=== PATIENT | female | born 1985 | race Caucasian/White ===

== ENCOUNTER 2017-12-27 19:39 | Emergency (ER) | payer OTHER ==
[2017-12-27 21:30] VITALS: BP 145/96
--- NOTE | 2017-12-27 21:44 | ED ---
Throat Pain/Nasal Congestion - HPI Summary HPI Summary: 32 yr old with sinus pressure for about 1.5 weeks, post nasal drip, and blow nose with yellow mucous. She has a sore throat as well. It is hard to breath out of her nose and hard to sleep at night. She has no other complaints. - History of Current Complaint Chief Complaint: UCRespiratory Time Seen by Provider: 12/27/17 21:33 - Allergies/Home Medications Allergies/Adverse Reactions: Allergies Allergy/AdvReac Type Severity Reaction Status Date / Time No Known Allergies Allergy Verified 12/27/17 21:25 Home Medications: Home Medications Blood Pressure Med 1 tab DAILY 12/27/17 [History Confirmed 12/27/17] PMH/Surg Hx/FS Hx/Imm Hx Endocrine/Hematology History: Reports: Hx Diabetes - type 2- diet controlled Cardiovascular History: Reports: Hx Hypertension - Surgical History Surgery Procedure, Year, and Place: gallbladder. 1 Infectious Disease History: No Infectious Disease History: Denies: Traveled Outside the [place] in Last 30 Days - Family History Known Family History: Positive: None - Social History Alcohol Use: Occasionally Substance Use Type: Reports: None Smoking Status (MU): Never Smoked Tobacco Review of Systems Positive: Chills Positive: Sore Throat, Nasal Discharge, Other - sinus pain All Other Systems Reviewed And Are Negative: Yes Physical Exam Triage Information Reviewed: Yes Vital Signs On Initial Exam: Initial Vitals Temp Pulse Resp BP Pulse Ox 98.4 F 87 16 145/96 99 12/27/17 21:26 12/27/17 21:26 12/27/17 21:26 12/27/17 21:26 12/27/17 21:26 Vital Signs Reviewed: Yes Appearance: Positive: Well-Appearing, No Pain Distress Skin: Positive: Warm, Skin Color Reflects Adequate Perfusion Head/Face: Positive: Normal Head/Face Inspection ENT: Positive: Pharynx normal, Nasal congestion, Nasal drainage, TMs normal Neck: Positive: Nontender Respiratory/Lung Sounds: Positive: Clear to Auscultation, Breath Sounds Present Cardiovascular: Positive: RRR. Negative: Murmur Abdomen Description: Positive: Nontender Musculoskeletal: Positive: Strength/ROM Intact Neurological: Positive: Sensory/Motor Intact, Alert, Oriented to Person Place, Time, CN Intact II-III Psychiatric: Positive: Normal - Damir Coma Scale Best Eye Response: 4 - Spontaneous Best Motor Response: 6 - Obeys Commands Best Verbal Response: 5 - Oriented Coma Scale Total: 15 Diagnostics - Vital Signs Vital Signs Temp Pulse Resp BP Pulse Ox 12/27/17 21:26 98.4 F 87 16 145/96 99 - Laboratory Lab Statement: Any lab studies that have been ordered have been reviewed, and results considered in the medical decision making process. EENT Course/Dx - Course Course Of Treatment: 32 yr old with sinusitis. Rx with augmentin and dc home - Diagnoses Provider Diagnoses: Sinusitis Discharge - Discharge Plan Condition: Good Disposition: HOME Prescriptions: Amoxicillin/Clavulanate TAB* [Augmentin TAB 875*] 875 mg PO BID #20 tab Patient Education Materials: Sinusitis (ED), Hypertension (ED) Referrals: ONESIMO Perdue [Primary Care Provider] -
[2017-12-27] MEDS: Amoxicillin/Clavulanate TAB* 875 MG PO ONE (21:54)
== END 2017-12-27 22:09 | disposition home or self-care (01) ==
LOC: UCCORT 19:39
DX: J32.9 Chronic sinusitis, unspecified (principal)
CPT/HCPCS: 99202; A9270-GY; G0463

== ENCOUNTER 2020-11-23 05:58 | Inpatient (IN) ==
[2020-11-23] MEDS ORDERED: Lactated Ringers 1000 ml BAG 1,000 ML IV SCH (06:00)
[2020-11-23] MEDS ORDERED: Buffered Lidocaine 1% SYRIN 1 ml INTRADERM ONE ×2 (06:00→06:25)
[2020-11-23] MEDS ORDERED: Dexamethasone IV 4 MG/ML VIAL 1 ml VIAL IV SLOW PU ONE (06:00)
[2020-11-23] MEDS ORDERED: Dexamethasone IV 4 MG/ML VIAL 1 ml VIAL ONE (06:24)
[2020-11-23] MEDS ORDERED: Heparin 5000 UNITS/ML 1 mL VIAL ONE (06:24)
[2020-11-23] MEDS ORDERED: ceFAZolin 2 GM PREMIX 2 GM/50 ML BAG ONE (06:25)
[2020-11-23] MEDS ORDERED: ceFAZolin 1 GM ADVAN 1 GM ADDV.VIAL IVPB ONE (06:25)
[2020-11-23] MEDS ORDERED: Methylene Blue 0.5 % 50 MG/10 ML AMP IV ONE (06:43)
[2020-11-23] MEDS ORDERED: Bupivacaine 0.25% SDV 30 ML ONE (06:43)
[2020-11-23] MEDS ORDERED: fentaNYL 250 mcg/5 ml 50 MCG/ML 5 ml VIAL (250 MCG) ONE (07:04)
[2020-11-23] MEDS ORDERED: Phenylephrine 40 mcg/mL 10mL (400mcg) SYRINGE ONE ×2 (07:04→08:04)
[2020-11-23] MEDS ORDERED: Lidocaine 2% PF 5 ML VIAL ONE ×2 (07:04→07:56)
[2020-11-23] MEDS ORDERED: Propofol 10 MG/ML 20 ML BTL ONE (07:04)
[2020-11-23] MEDS ORDERED: Midazolam 5 mg/5 ml VIAL 1 mg/ml 5 ml VIAL (5 mg) ONE (07:04)
[2020-11-23] MEDS ORDERED: Rocuronium 50 mg VIAL 10 mg/ml 5 ml VIAL (50 mg) ONE ×2 (07:05→09:16)
[2020-11-23] MEDS ORDERED: Ondansetron 4 mg VIAL 2 MG/ML 2 ml VIAL ONE (08:28)
[2020-11-23] MEDS ORDERED: Phenylephrine IV 10 MG/ML 1 ml VIAL ONE (08:35)
[2020-11-23] MEDS ORDERED: HYDROmorphone 1 MG/1 ML SYRINGE ONE ×2 (08:55→10:20)
[2020-11-23] MEDS ORDERED: Acetaminophen IV 1 GM/100ML 100 ML ONE (09:16)
[2020-11-23] MEDS ORDERED: Naloxone 0.4 mg VIAL 0.4 mg/ml 1 ml VIAL IV PRN (09:35)
[2020-11-23] MEDS ORDERED: fentaNYL 100 mcg/2 ml 50 MCG/ML VIAL IV PRN (09:35)
[2020-11-23] MEDS ORDERED: HYDROmorphone 1 MG/1 ML SYRINGE IV PRN (09:35)
[2020-11-23] MEDS ORDERED: Ondansetron 4 mg VIAL 2 MG/ML 2 ml VIAL IV PRN ×2 (09:35→10:48)
[2020-11-23] MEDS ORDERED: HYDROmorphone 1 MG/1 ML SYRINGE IV SLOW PU PRN (10:48)
[2020-11-23] MEDS ORDERED: HYDROcodone/ACET. 7.5/325 LIQ 15 ML UDC PO PRN (10:48)
[2020-11-23] MEDS ORDERED: HYDROmorphone 0.5 MG/0.5 ML SYRINGE IV SLOW PU PRN (10:48)
[2020-11-23] MEDS ORDERED: diPHENhydraMINE IV 50 MG/ML 1 ml VIAL (BENADRYL) SLOW PUSH PRN (10:48)
[2020-11-23] MEDS ORDERED: fentaNYL 100 mcg/2 ml 50 MCG/ML VIAL ONE (11:36)
[2020-11-23] MEDS ORDERED: HYDROmorphone 0.5 MG/0.5 ML SYRINGE ONE (12:22)
[2020-11-23] MEDS: Lactated Ringers 1000 ml BAG 1,000 ML IV SCH ×2 (12:26→18:50)
[2020-11-23] MEDS: Heparin 5000 UNITS/ML 1 mL VIAL SUBCUT SCH ×2 (14:43→21:17)
[2020-11-23] MEDS: Famotidine IV 10 MG/ML 2 ml VIAL (20 mg) IV SLOW PU SCH (21:18)
[2020-11-24] MEDS: Lactated Ringers 1000 ml BAG 1,000 ML IV SCH (01:27)
[2020-11-24] MEDS: Heparin 5000 UNITS/ML 1 mL VIAL SUBCUT SCH ×3 (05:28→22:42)
[2020-11-24] MEDS: Famotidine IV 10 MG/ML 2 ml VIAL (20 mg) IV SLOW PU SCH (08:45)
[2020-11-24] MEDS: D5W 1/2 NS KCl 20 meq 1000 ml 1,000 ML IV SCH ×2 (15:23→22:47)
[2020-11-25] MEDS: Heparin 5000 UNITS/ML 1 mL VIAL SUBCUT SCH (06:43)
[2020-11-25] MEDS: D5W 1/2 NS KCl 20 meq 1000 ml 1,000 ML IV SCH (06:53)
[2020-11-25 11:57] VITALS: BP 92/63
[2020-11-26] MEDS ORDERED: Scopolamine PATCH Remove NOTE PATCH OFF ONE (06:51)
== END 2020-11-25 13:30 | disposition home or self-care (01) | DRG 403 ==
LOC: AA 05:58 → SSU 12:15
PROVIDERS: ADMIT Surgery; ATTEND Surgery